=== PATIENT | male | born 1955 | race Caucasian/White ===

== ENCOUNTER 2025-04-21 06:29 | Outpatient (OUT) | payer OTHER, SELFPAY ==
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
--- OUTSIDE RECORDS SUMMARY | 2025-04-21 06:37 | XMS_ITS | Patient Health Record ---
Author Organization [facility] [place] Address [address] [place] [address] Care Team Providers Care Social Sciences Department Chair Name Role Phone Damian Grier Primary Care Provider Allergies Allergen (clinical drug ingredient) Drug/Non Drug Allergy documented on EMR Reaction Allergy Type Onset Date Status Substance with 0-mosqeyg-0-m ethylglutaryl-coenzyme A reductase inhibitor mechanism of action (substance) Statins joint pain Drug Allergy Active Reason For Referral No Information Medications Medication SIG (Take, Route, Frequency, Duration) Notes Start Date End Date Status Lisinopril 10 MG 1 tablet Orally Once a day 5ActiveAmoxicillin-Pot Clavulanate 875-125 MG1 tablet Orally every 12 hrs; Duration: 10 days5Active Social History Tobacco Use: Social History Observation Description Date Details (start date - stop date) Current Smoker 12/04/1967 - NA Tobacco Control (Standard) Question Answer Notes Tobacco use: Current smoker When did you start smoking?12/04/1967How often do you smoke cigarettes?Every day How many cigarettes a day do you smoke?5 or lessAdditional Findings: Tobacco userTrivial cigarette smoker (less than 1 cig/day)AUDIT-C (Standard) Question Answer Notes Did you have a drink containing alcohol in the p ast year? Yes How often did you have a drink containing alcohol in the past year?Monthly or less (1 point)How many drinks did you have on a typical day when you were drinking in the past year?1 or 2 drinks (0 point)How often did you have six or more drinks on one occasion in the past year?2 to 3 times per week (3 points) Ikrtjr2FukieggcprygjpApzeqlpgLdwcrzi Notes: Was a pack a day for years- quits on and off Problems Problem Type SNOMED Code ICD Code Onset Dates Problem Status W/U Status Risk Notes Problem Hyperlipidemia (02783593) Hyperlipidemia (E78.5) ActiveconfirmedProblemObesity (380384421)Obesity (E66.9)ActiveconfirmedProblem Chronic kidney disease (504610803)Chronic kidney disease (N18.9)Activeconfirmed ProblemObstructive sleep apnea syndrome (06221317)ARCELIA (obstructive sleep apnea) (G47.33)ActiveconfirmedProblemAcute sinusitis (06780281)Acute sinusitis (J01.90) ActiveconfirmedProblemEmphysema (16924635)Emphysema (J43.9)Activeconfirmed Vital Signs Temperature 100.7 degrees Fahrenheit 12/05/2024 Blood pressure aycgvlvmd12 mm Hg12/05/20242352Xvcbjd04 in12/05/2024lood pressure kevxnvfc774 mm Hg12/05/20248604Dujeoh319.6 lbs12/05/2024BMI33.37 kg/m212/05/2024 Encounters Encounter Location Date Provider Diagnosis [facility] [address] [place] [address] 12/05/2024 Damian Hoy Acute non-recurrent sinusitis, unspecified location J01.90 ; Nasal congestion R09.81 and Acute sinusitis J01.90 [facility] [address] [place] [address] 12/20/2024 Damian Hoy Acute non-recurrent sinusitis, unspecified location J01.90 Assessments Encounter Date Diagnosis (ICD Code) Assessment Notes Treatment Notes Treatment Clinical Notes Section Notes 12/05/2024 Acute non-recurrent sinusitis, unspecified location (ICD-10 - J01.90) Rest and drink more liquids, especially water. You may use a humidifier or vaporizer to help keep the drainage moist. Vlfo-ear-frguwmt Nasal Saline may help the stuffy and runny nose. Use Ibuprofen and or Tylenol as needed for fever, chills, body aches or pain. Children 5 years old should not be given vlyd-ekj-sahjjrf cough and cold medications such as guaifenesin and dextromethorphan. If you're over age 5, you may try xnfe-mmr-sfqfezt cold medications such as guaifenesin and dextromethorphan, or multi-symptom cold reliever such as Dayquil to help reduce the symptoms. Antibiotics have been pre scribed. You should take these until completed and follow the directions. Antibiotics can sometimescause upset stomach, and in rare cases, serious allergic reactions or serious gastrointestinal problems. If you start having severe abdominal pain, severe vomiting, or bloody diarrhea, you should be r eevaluated by your physician or urgent care immediately. Follow up with your Primary Care Provider or return to clinic if symptoms do not improve within 3-5 days12/05/2024Nasal congestion (ICD-10 - R09.81)5Acute non-recurrent sinusitis, unspecified location (ICD-10 - J01.90)5Acute sinusitis (ICD- 10 - J01.90) Plan Of Treatment No Information Insurance Providers Payer Name Payer Address Payer Phone Subscriber Number Group Number Insured Name Patient Relationship to Insured Coverage Start Date Coverage End Date [employer] [address] [place] [phone] [id number] Marilee Mccauley - patient is the insured Medical (General) History Surgical History Surgery Date(Month/Year) Meniscal Repair APPENDECTOMYHernia Repair x2
--- OUTSIDE RECORDS SUMMARY | 2025-04-21 06:37 | XMS_ITS | Clinical Summary ---
Author Organization [facility] Address [address] [place] [address] Care Team Providers Care Shank Burnisher Name Role Phone Unavailable Primary Care Provider Unavailabl e Allergies No known active allergies Medications MedicationSigDispense QuantityRefillsLast FilledStart DateEnd DateStatus naproxen (Naprosyn) 500 MG tablet Take 500 mg by mouth11/08/2023ctive rosuvastatin (Crestor) 20 MG tablet Take 1 tablet by mouth at xjmyclx5807/12/2023ctive lisinopril 10 MG tablet Take by mouth03/30/2023ctive Social History Tobacco UseTypesPacks/DayYears UsedDateSmoking Tobacco: Never AssessedSex and Gender InformationValueDate RecordedSex Assigned at BirthNot on fileLegal Sex Male08/17/2022 6:59 PM EDTGender IdentityNot on fileSexual OrientationNot on file Last Filed Vital Signs Vital SignReadingTime TakenCommentsBlood Gbrmgdgq390/7006 1:17 PM EDT Lrvzs107211/21/2023 1:17 PM CKSFgtxuwwsqmc16.6 ??C (97.8 ??F)11/21/2023 1:17 PM EDTRespiratory Rate--Oxygen Sfvjuhdafh04%11/21/2023 1:17 PM EDTInhaled Oxygen Concentration--Weight--Height--Body Mass Index-- Plan of Treatment Not on file Insurance
--- OUTSIDE RECORDS SUMMARY | 2025-04-21 06:37 | XMS_ITS | Clinical Summary ---
Author Organization [facility] Address [address] [place] [address] Care Team Providers Care Corporate Accounting Manager Name Role Phone Trupti Erwin MD Unavailable Ish Guidry PSYD Primary Care Prov ider Allergies Active AllergyReactionsCriticalityNoted DateCommentsAtorvastatinOther: See Xaajxqas38/23/2024 Joint pain SimvastatinOther: See Lzzfelkx19/23/2024 Medications MedicationSigDispense QuantityRefillsLast FilledStart DateEnd DateStatus lisinopril (ZESTRIL) 10 mg tablet Take by mouth.Active rosuvastatin (CRESTOR) 20 mg tablet Take 20 mg by mouth once daily.Active naproxen (NAPROSYN) 500 mg tablet Take 500 mg by mouth two times a day with meals.Active Social History Tobacco UseTypesPacks/DayYears UsedDateSmoking Tobacco: Every DayCigarettes Smokeless Tobacco: Never Tobacco Cessation:Ready to Q uit: Not Asked; Counseling Given: Not Answered Alcohol UseStandard Drinks/WeekCommentsNot Currently0 (1 standard drink = 0.6 oz pure alcohol)Area Deprivation IndexAnswerDate RecordedNational Score (1-100), lower number is lower zdjo058503/04/2024State Score (1-10), lower number is lower mbdv861ata from: https://www.neighborhoodatlas.medicine.[facility].edu/. Last address [facility] [address] [facility]Sex and Gender Information ValueDate RecordedSex Assigned at BirthNot on fileLegal MudPpow2410/2023 10:34 PM ESTGender XlwozzpnAfvd23/08/2025 2:55 PM EDTSexual OrientationStraight 09/10/2024 2:55 PM EDT Last Filed Vital Signs Vital SignReadingTime TakenCommentsBlood Jcslrydc346/60003/04/2024 9:20 AM EDT Ibctw8498/30/2024 9:20 AM JNAWpuoxvhzgds76.4 ??C (97.5 ??F)03/04/2024 8:27 AM EDTRespiratory Yabr915703/04/2024 9:20 AM EDTOxygen Cirieihnml788%03/04/2024 9:20 AM EDTInhaled Oxygen Concentration--Mwwypd551.9 kg (229 lb)03/04/2024 8:27 AM MLXLdllmp155.8 cm (5' 10 )03/04/2024 8:27 AM EDTBody Mass Index32.8603/04/2024 8:27 AM EDT Plan of Treatment Health MaintenanceDue DateLast DoneCommentsAbdominal Aortic Aneurysm Screening 5Anxiety Qzdrmuyby41/10/1973Depression Klzzwhlsv68/10/1973Hepatitis C Befvtkibz63/10/1973Lipid Tabfhizyn61/10/1990CT Znpafgevdpxy49/10/2000Cologuard (FIT-DNA)08/13/1999Diabetes Rkdovfwre36/10/2000Fecal Occult Blood08/13/1999 Yfqduplrfgroh89/10/2000Advance Directive Rdydrvhggt12/01/2025ovid-19 Vaccine ( season), 08/25/2020, 08/04/2020Influenza Vaccine (#1)/, 02/03/2021, 06/18/2019, Additional history exists Azgultqzqcz83, 02/09/2021, 12/01/2015, Additional history existsColorectal Cancer Fpcljwsbk83/30/2025RSV Vaccine (1 - 1-dose 75+ series) 2029DTaP,Tdap,Td Vaccine (3 - Td or Tdap), 04/17/2013 Shingrix KscsruqFiozytnui40/19/2019, 12/11/2017Pneumococcal Vaccine: 50+ Spmskkxoe00/08/2023, 07/13/2021, 09/12/2013 Procedures Procedure NamePriorityDate/TimeAssociated DiagnosisCommentsCOLONOSCOPY FBBQHNKVAJNlfkwfh45/30/2024 8:47 AM EDT Hx of colonic polyps from Last 3 Months or Most Recently Relevant to Health Maintenance Results * COLONOSCOPY DIAGNOSTIC (03/04/2024 8:47 AM EDT)Anatomical RegionLaterality ModalityOtherSpecimen (Source)Anatomical Location / LateralityCollection Method / VolumeCollection TimeReceived Time03/04/2024 8:47 AM EDT Narrative 03/04/2024 9:13 AM EDT [facility] Patient Name: Pardeep De La Fuente Procedure Date: 03/04/2024 8:47 AM Date of : 1955 Age: 68 Gender: Male Race: Unknown Attending MD: Trupti Erwin MD, [id number] Procedure: ? Colonoscopy [facility] Providers: ? Trupti Erwin MD Indications: ? High risk colon cancer surveillance: Personal history ? of colonic polyps Findings: ?The perianal and digital rectal examinations were ? normal. ? Multiple small and large-mouthed diverticula were ? found in the rectum and entire colon. ? A 3 mm polyp was found in the descending colon. The ? polyp was sessile. The polyp was removed with a cold ? biopsy forceps. Resection and retrieval were complete. ? Verification of patient identification for the ? specimen was done by the nurse using the patient's ? name, date and medical record number. Estimated ? blood loss was minimal. ? Non-bleeding internal hemorrhoids were found during ? retroflexion. The hemorrhoids were Grade I (internal ? hemorrhoids that do not prolapse). Patient Profile: ? This is a 68 year old male. Refer to note in patient ? chart for documentation of history and physical. Impression: ?- Diverticulosis in the rectum and in the entire ? examined colon. ? - One 3 mm polyp in the descending colon, removed with ? a cold biopsy forceps. Resected and retrieved. ? - Non-bleeding internal hemorrhoids. Recommendation: ?- Await pathology results. ? - Patient has a contact number available for ? emergencies. The signs and symptoms of potential ? delayed complications were discussed with the patient. ? Return to normal activities tomorrow. Written ? discharge instructions were provided to the patient. ? - Continue present medications. ? - High fiber diet. ? - Repeat colonoscopy in 1 year because the bowel ? preparation was suboptimal. Use Miralax 1 capful daily ? x 7 days then Golytely. Medicines: ? Propofol per Anesthesia Procedure: ? Pre-Anesthesia Assessment: ? - Prior to the procedure, a History and Physical was ? performed, and patient medications and allergies were ? reviewed. The patient is competent. The risks and ? benefits of the procedure and the sedation options and ? risks were discussed with the patient. All questions ? were answered and informed consent was obtained. ? Patient identification and proposed procedure were ? verified by the physician and the nurse in the ? pre-procedure area in the procedure room. Mental ? Status Examination: alert and oriented. Airway ? Examination: normal oropharyngeal airway and neck ? mobility. Respiratory Examination: clear to ? auscultation. CV Examination: normal. Prophylactic ? Antibiotics: The patient does not require prophylactic ? antibiotics. Prior Anticoagulants: The patient has ? taken no anticoagulant or antiplatelet agents. ASA ? Grade Assessment: III - A patient with severe systemic ? disease. After reviewing the risks and benefits, the ? patient was deemed in satisfactory condition to ? undergo the procedure. The anesthesia plan was to use ? deep sedation / analgesia. Immediately prior to ? administration of medications, the patient was ? re-assessed for adequacy to receive sedatives. The ? heart rate, respiratory rate, oxygen saturations, ? blood pressure, adequacy of pulmonary ventilation, and ? response to care were monitored throughout the ? procedure. The physical status of the patient was ? re-assessed after the procedure. ? After I obtained informed consent, the scope was ? passed under direct vision. Throughout the procedure, ? the patient's blood pressure, pulse, and oxygen ? saturations were monitored continuously. Provation ? AI/GI Genius was used during withdrawal. The ? Colonoscope was introduced through the anus and ? advanced to the cecum, identified by appendiceal ? orifice and ileocecal valve. The colonoscopy was ? performed without difficulty. The patient tolerated ? the procedure well. The ileocecal valve, appendiceal ? orifice, and rectum were photographed. The quality of ? the bowel preparation was evaluated using the BBPS ? ([place] Bowel Preparation Scale) with scores of: Right ? Colon = 2 (minor amount of residual staining, small ? fragments of stool and/or opaque liquid, but mucosa ? seen well), Transverse Colon = 2 (minor amount of ? residual staining, small fragments of stool and/or ? opaque liquid, but mucosa seen well) and Left Colon = ? 2 (minor amount of residual staining, small fragments ? of stool and/or opaque liquid, but mucosa seen well). ? The total BBPS score equals 6. Complications: ? No immediate complications. Procedure Code(s): ? --- Professional --- ? 15258, Colonoscopy, flexible; with biopsy, single or ? multiple Diagnosis Code(s): ? --- Professional --- ? Z86.010, Personal history of colonic polyps ? K64.0, First degree hemorrhoids ? D12.4, Benign neoplasm of descending colon ? K57.30, Diverticulosis of large intestine without ? perforation or abscess without bleeding CPT copyright 2020 [employer]. All rights reserved. The codes documented in this report are preliminary and upon relations mgr review may be revised to meet current compliance requirements. Trupti Erwin MD 03/04/2024 9:13:41 AM Number of Addenda: 0 Note Initiated On: 03/04/2024 8:47 AM Authorizing ProviderResult TypeResult StatusRinfidelia Erwin MDDIGESTIVE DISEASEFinal Result from Last 3 Months or Most Recently Relevant to Health Maintenance Insurance Care Teams Team MemberRelationshipSpecialtyStart DateEnd Date Ish Guidry PSYD [address] [place] [address] PCP - GeneralFamily Medicine03/04/24 Trupti Erwin MD [address] [facility] [address] [place] [address] Gastroenterology01/31/24
--- OUTSIDE RECORDS SUMMARY | 2025-04-21 06:37 | XMS_ITS | Clinical Summary ---
Author Organization [facility] Address [id number] [place] [address] Care Team Providers Care Latex Caster Name Role Phone Unavailable Primary Care Provider Unavailabl e Immunizations ImmunizationAdministration DatesNext DueCOVID-19, mRNA, LNP-S, PF, 30mcg/0.3mL Dose08/25/2020,08/04/2020 Social History Tobacco UseTypesPacks/DayYears UsedDateSmoking Tobacco: Never AssessedChildcare AnswerDate KfobqwytBtovsneyaWbicofe19/01/2021EmploymentAnswerDate Recorded AwftdztakpZyrbmaq91/01/2021Purpose - LifeAnswerDate RecordedPurpose and direction in unflYxbsqqv43/01/2021ex and Gender InformationValueDate Recorded Sex Assigned at BirthNot on fileLegal MyfWkrm4208/03/2020 10:54 AM ESTGender IdentityNot on fileSexual OrientationNot on file Plan of Treatment Health MaintenanceDue DateLast DoneCommentsDepression Uyujcfsrj49/10/1967Tobacco Ipdbrnqsv36/10/1967Adult BMI Ljxvkzscn36/10/1973DTaP,Tdap and Td Vaccines (1 - Tdap)1973Zoster (Shingles) Vaccine (1 of 2)2004Fall Risk Screening 08/13/2019COVID-19 Vaccine (3 - 2024- season)503/, 08/04/2020 Influenza Xcjjala5002/03/2025RSV ( or age 60+ yrs) (1 - 1-dose 75+ series) 2029 Medical Devices Not on file
[2025-04-21 07:02] LABS: Hematocrit 43.8 % (42.0-54.0); Hemoglobin 14.5 g/dL (14.0-18.0); Mean Corpuscular HGB Conc 33.1 g/dL (29.9-35.2); Mean Corpuscular Hemoglobin 28.8 pg (25.9-34.0); Mean Corpuscular Volume 86.9 fL (80.0-94.0); Platelet Count 354 10^3/uL (150-450); Red Blood Count 5.04 10^6/uL (4.70-6.10); White Blood Count 16.8 10^3/uL (4.0-11.0)
[2025-04-21 07:52] LABS: Basophils Abs Manual 0.00 10^3/uL (0.00-0.10); Basophils Percent Manual 0.0 % (0.2-2.0); Eosinophils Absolute Manual 0.16 10^3/uL (0.00-0.70); Eosinophils Percent Manual 1.0 % (0.9-7.0); Lymphocytes Absolute Manual 3.86 10^3/uL (1.20-3.80); Lymphocytes Percent Manual 23.0 % (20.5-60.0); Monocytes Absolute Manual 0.84 10^3/uL (0.30-0.80); Monocytes Percent Manual 5.0 % (1.7-12.0); Segmented Neut Absolute Manual 11.92 10^3/uL (1.4-6.5); Segmented Neutrophils % Manual 71.0 (43.0-75.0)
== END 2025-04-21 06:30 | disposition home or self-care (01) ==
LOC: LAB 06:34
PROVIDERS: PCP Family Medicine; Visit Provider Ophthalmology
DX: H02.831 Dermatochalasis of right upper eyelid (principal); H02.834 Dermatochalasis of left upper eyelid; H57.813 Brow ptosis, bilateral
CPT/HCPCS: 36415; 85007; 85027